=== PATIENT | male | born 1955 | race Caucasian/White ===

== ENCOUNTER 2018-08-15 09:38 | Outpatient (CLI) | payer OTHER ==
[2018-08-15 12:05] LABS: eGFR (Non-African) > 60
== END 2018-08-15 19:45 ==
LOC: LAB 09:38
PROVIDERS: ATTEND Family Medicine
DX: Z00.00 Encounter for general adult medical examination without abnormal findings (principal); M10.9 Gout, unspecified; Z11.59 Encounter for screening for other viral diseases; Z11.3 Encounter for screening for infections with a predominantly sexual mode of transmission
CPT/HCPCS: 80053; 80061; 84550; 86703; 86803; 87340

== ENCOUNTER 2018-08-22 09:18 | Day surgery (SDC) | payer OTHER ==
[~2018-08-22 09:18] MED LIST: LACTATED RINGERS 1,000 ML IV.SOLN IV ONE; PROPOFOL 500 MG/50 ML VIAL IV ONE; SALINE FLUSH 10 ML DISP.SYRIN IVF ONE
--- NOTE | 2018-08-23 11:39 | GI Report ---
REFERRING PHYSICIAN: Dr. Elizabeth Arthur OPERATOR: Don Troncoso MD PROCEDURE MEDICATION: Propofol as per anesthesia. INDICATIONS: Patient is a 62-year-old man who is referred for a colonoscopy. In 2006, he had adenomatous polyps removed from his colon. Follow up colonoscopy in 2010 showed diverticular disease, no recurrent polyps. He denies any recent attacks of pain or change in stools or bleeding. 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 PROCEDURE PERFORMED: Colonoscopy. PROCEDURE: An Olympus video colonoscope was advanced to the rectum. In the sigmoid, he has mild to moderate diverticular disease. No diverticulitis. The colonoscope was slowly advanced all the way to the cecum. The appendiceal orifice was normal. The terminal ileum was normal. On slow withdrawal, the cecum, ascending colon, and transverse colon with no obvious intraluminal lesions noted. The descending colon, particularly in the sigmoid, mild diverticular disease but no diverticulitis. Retroflexion of the rectum was normal. Patient tolerated the procedure well. FINDINGS: Diverticular disease of the sigmoid colon, otherwise, normal colonoscopy. RECOMMENDATIONS: 1. Continue high-fiber diet. 2. Since he is negative, would recommend re-looking at his colon within 10 years, sooner if clinically indicated. cc: Dr. Elizabeth WEINBERG
== END 2018-08-22 09:20 ==
LOC: OPSURG 09:18
PROVIDERS: ATTEND Internal Medicine Gastroenterology
DX: K57.30 Diverticulosis of large intestine without perforation or abscess without bleeding (principal); Z86.010 Personal history of colon polyps
CPT/HCPCS: J2704; J7120; 45378; S1016